=== PATIENT | female | born 1950 | race Asian ===

== ENCOUNTER 2018-07-05 10:31 | Inpatient (IN) | payer MEDICARE, OTHER, SELFPAY ==
[2018-06-30 08:22] VITALS: BMI 26.5
[2018-07-05] VITALS (17 sets, daily range): BP systolic 96–148; BP diastolic 57–90; PULSE 76–102; RESP 12–20; TEMP 36.1–36.8; O2SAT 93–100; BMI 25.4
--- NOTE | 2018-07-05 | DI.RAD.S_ITS ---
PROCEDURE: XR LUMBAR SPINE 2-3V INDICATIONS: L4-5 TLIF TECHNIQUE: 2 views of the lumbar spine were acquired. COMPARISON: [facility]ricks[facility], XR LUMBAR SPINE 2 OR 3 VIEWS, 06/27/2018, 10:14. FINDINGS: 2 intraoperative fluoroscopic views of the lower lumbar spine demonstrate postsurgical changes status post posterior fixation at L4-L5 with mild pedicle screws at these levels. Intervertebral spacer is also noted. IMPRESSION: 1. Intraoperative images demonstrate posterior fixation and fusion at L4-5. Dictated by: Tacos Main M.D. on 07/05/2018 at 16:02 Approved by: Tacos Main M.D. on 07/05/2018 at 16:03
[2018-07-05] MEDS: LACTATED RINGERS 1,000 ML 42 ML IV ×2 (11:13→14:29)
--- NOTE | 2018-07-05 11:59 | PM.PREOP ---
Pre-operative Note Interval Note History & Physical reviewed/Exam performed by Physician: Yes Changes to H&P: No
[2018-07-05] MEDS: SCOPOLAMINE 1 PATCH TOP (12:05)
[2018-07-05] MEDS: CEFAZOLIN 2 GM/100 ML FROZ.PIGGY IV (12:28)
--- NOTE | 2018-07-05 13:16 | SUR.OPER ---
Prone on spine table, head in foam head support, padded chest and pelvic supports, gel pad at knees, lower legs supported by pillows; nipples, genitalia and toes free of pressure, arms secured on foam padded arm boards at <90 degrees abduction. Tape over blanket at thigh secured to table.
[2018-07-05] MEDS: BUPIVACAINE LIPOSOME 266 MG/20 ML VIAL INJ (13:20)
[2018-07-05] MEDS: BUPIVACAINE 0.25% W/ EPI 30 ML VIAL INJ (13:20)
[2018-07-05] MEDS: ACETAMINOPHEN IV 1,000 MG/100 ML VIAL 400 MG IV (14:42)
--- NOTE | 2018-07-05 15:21 | PM.OP.1 ---
Operative Date/Time/Diagnoses Date of procedure: 07/05/18 Time of procedure: 12:21 Pre-op diagnosis: 1. L4-5 spondylolisthesis 2. L4-5 spinal stenosis Post-op diagnosis: same Procedure & Clinicians Procedure: 1. L4-5 Postero-lateral and posterior interbody fusion 2. L4-5 interbody cage placement. 3. L4-5 decompressive laminectomy with bilateral facetecomies 4. L4-5 Posterior non-segmental instrumentation 5. Alviso of bone marrow from iliac crest 6. Utilization of microsurgical technique and operating microscope Same procedure as scheduled: Yes Indications: Patient has been having chronic back pain and worsening lumbar radiculopathy. Patient failed multiple conservative management with worsening pain weakness and numbness in her lower extremity. Patient has been having difficulty performing activity of daily living. After discussing risks benefits of treatment options, patient elected proceed with surgery. Surgeon: Carol Albright Automatic Washer Mechanic: Selina Sloan Click Yes if Unassisted: No Anesthesia Type: General Operative Notes Closure Type: primary Specimen(s): none sent Prosthetic devices, grafts, tissues, transplants, or devices: Globus Revolve screws, Rise cage Estimated Blood Loss (mL): 50 Blood products transfused: none Procedure in detail: Patient was seen in the preoperative area. Risks and benefits of the surgery was discussed with the patient. Informed consent was obtained from the patient and placed in the chart. Surgical site was marked. Patient was taken to the operative room. General anesthesia was administered. Prophylactic antibiotic was given to the patient less than 30 min before the incision was made. Patient was placed into a prone position on the Roberto table. Patient's back was then prepped and draped in the sterile fashion. Time-out was performed at this time. Using AP and lateral C-arm imaging the interval between L4-5 was identified and marked on patient's back. A 2 inch incision 2 in from midline was made on the left side first. The fascia was incised in line with skin incision. Globus MARS retractors was placed inside the incision and docked onto the L4 lamina. Using microsurgical technique and operating microscope, a L4-5 laminectomy and L4-5 facetectomy was performed using a Kerrison rongeur. Patient was found have severe bilateral neuroforaminal stenosis, which was fully decompressed after decompression was completed. More than 75% of bilateral facets were removed during the process decompression which made the L4-5 level further unstable and require a fusion procedure at the same time. The disc space at L4-5 was identified. And a total diskectomy was performed at L4-5 level. The endplates were decorticated using a rasp and shaver. The total diskectomy and decortication was performed at L4-5 level in order to to accomplish a L4-5 fusion. The local bone from the laminectomy and facetectomy was saved for local bone grafting. After the total diskectomy and decortication was completed, Bio4 bone graft material was combined with local bone that was harvested earlier. At this time, a separate skin is incision was made over the iliac crest. A Jamshidi needle was inserted into the iliac crest through a separate skin incision. 5 cc of bone marrow aspiration was obtained through the separate skin incision using a Jamshidi needle from the iliac crest. The bone marrow aspiration was combined with local bone and the via cell bone grafting material. The bone grafting material was placed into the L4-5 interbody space along with a expandable cage. The cage was expanded to its maximum height using the torque limiting screwdriver. At this time a mirror image incision was made on the right side. The fascia was incised in line with the skin incision. Globus MARS retractor was inserted and docked onto the L4-5 posterolateral gutter. Using the power drill, posterior-lateral decortication was performed at L4-5 level until bleeding cortical bone was identified. The remaining bone grafting material was placed into the L4-5 posterior lateral gutter he order to accomplish posterolateral fusion at the L4-5 level. Using the double C-arm technique, pedicle screws were placed into the L4-5 pedicles bilaterally. This was done by placing the Jamshidi needle into the pedicles, then placing the guidewires over the Jamshidi needle, and finally placing the cannulated screws over the guidewires bilaterally. After the pedicle screws were placed, 2 titanium rods was locked into the heads of the pedicle screws using locking caps and torque limiting screwdriver. After all the hardware was placed, and confirmed with AP and lateral C-arm imaging, the wound was then irrigated with sterile normal saline and packed with Ray-Myrna gauze for 3 min to accomplish hemostasis. After the gauze was removed the deep fascia was closed with #1 Vicryl suture. The subcutaneous layer was closed with 2-0 Vicryl. The skin was closed with skin gavi. Patient tolerated the procedure well. There were no complications. Complications: none Condition: stable Disposition: PACU Plan for aftercare: Admit to inpatient hospital
--- NOTE | 2018-07-05 16:45 | SUR.PHASEI ---
Pt transferred to room 209 via bed with all belongings. Pt is awake and alert with no c/o pain. Last vital signs stable; see flowsheet documentation for details. Report given to SUSAN Medel prior to transfer. Lizy at bedside upon arrival to room 209; handoff report and assessment done. Lizy to assume care of pt at this time.
[2018-07-05] MEDS: SODIUM CHLORIDE 0.9% 1,000 ML 100 ML IV (16:52)
--- NOTE | 2018-07-05 19:01 | PC.NURSE ---
Pt doing well after spinal surgery - dressing to lumbar region CDI. Denies pain at this time and can move and feel her LEs. Alert and oriented. Eating and drinking well - no nausea. Spouse in room with pt and will stay overnight in room. O2 sats = 95% on RA.
[2018-07-05] MEDS: DOCUSATE 100 MG CAPSULE PO (21:18)
[2018-07-05] MEDS: CEFAZOLIN 1 GM/50 ML FROZ.PIGGY IV (21:18)
[2018-07-05] MEDS: ACETAMINOPHEN 325 MG TABLET 650 MG PO (21:22)
--- NOTE | 2018-07-05 22:41 | PC.NURSE ---
Pt denies pain. Has voided large volume of urine on two occasions. able to move self in bed without pain. Dressing to back CDI. Spouse in room.
[2018-07-06 03:18] VITALS: BP 124/59; PULSE 69; RESP 16; TEMP 36.7; O2SAT 96
[2018-07-06] MEDS: CEFAZOLIN 1 GM/50 ML FROZ.PIGGY IV (04:35)
[2018-07-06 07:50] VITALS: PULSE 63; RESP 16; O2SAT 94
[2018-07-06 08:00] VITALS: BP 124/55; PULSE 76; RESP 18; TEMP 36.8; O2SAT 95
[2018-07-06] MEDS: HYDROCODONE/ACET 5/325 TABLET 1 TAB PO (08:53)
--- NOTE | 2018-07-06 09:15 | PT.IIE ---
Current Diagnoses Spondylolisthesis, lumbar region (07/05/18) Spinal stenosis, lumbar region without neurogenic claudication (07/05/18) Other bursal cyst, other site (07/05/18) Surgery Performed Operation Date: 07/05/18 12:15 Actual Procedures p L5-S1 hemilaminectomy, L4-5 TLIF w/posterior instrumentation - Carol Albright MD Surgical History (Last Updated 06/30/18 @ 08:27 by Mouna Leung RN) Hx of arthroscopy of right knee (Acute ~11/2012) Hx of breast implants, bilateral (Acute) Medical History (Last Updated 06/30/18 @ 09:06 by Mouna Leung RN) Abnormal liver function tests (Acute) Breast cyst (Acute ~1998) Chronic low back pain (Acute) Impaired fasting glucose (Acute) Lumbar radiculopathy (Acute) Peripheral neuropathy (Acute) Physical Therapy Inpatient Evaluation/Re-Eval M1 PT/OT-IP Prior Functional Status Start: 07/06/18 12:46 Freq: NEEDED Status: Active Protocol: Document 07/06/18 09:15 AB (Rec: 07/06/18 12:56 AB [id number]) Medical Review Prior Functional Status Medical History Reviewed Yes Communication able to make needs known Mobility and Gait pt stated that she is independent with all mobilities and ambulation without AD Social History Household Members spouse Living Arrangements House Number of Floors (Floors) Two Floors Number of Stairs To Enter/Railing? 2 steps without rails to enter 14 steps with L rail ascending to main level of the house Home Environment High Toilet Walk in Shower Home Equipment Front Wheel Walker Shower Seat without Backrest Hand Held Shower Additional Social History Comment pt has a high bed; pt plans to sleep on a couch has a hurrycane M2 PT-IP Current Condition Start: 07/06/18 12:46 Freq: NEEDED Status: Active Protocol: Document 07/06/18 09:15 AB (Rec: 07/06/18 12:56 AB [id number]) Physical Therapy Current Condition Current Condition Evaluation Date 07/06/18 Treatment Diagnosis s/p L 4-5 fusion/ lami; difficulty in walking Onset Date 07/05/18 Precautions Lumbar Precautions Log Roll No Twisting Limit Bending Lifting Restriction of 10 lbs Gait Belt above Incisional Area M3 PT-IP Subjective Start: 07/06/18 12:46 Freq: NEEDED Status: Active Protocol: Document 07/06/18 09:15 AB (Rec: 07/06/18 12:56 AB [id number]) Subjective Physical Therapy Visit Type Type Initial Evaluation Visit Start Time 09:15 Visit Stop Time 09:57 Number of CHIEF ULTRASOUND TECHNOLOGIST Visits 42 Physical Therapy Visit Comments Patient Comments pt agreeable to do PT Therapy Pain Assessment Pain When Pain Assessed At Rest Pain Present Pain Present Pain Reported Location Lower Back Intensity 3 Scale Used Numeric (1 - 10) Pain Management Techniques Re-positioning Timing of Activity with Medications M4 PT-IP Mobility and Gait Start: 07/06/18 12:46 Freq: NEEDED Status: Active Protocol: Document 07/06/18 09:15 AB (Rec: 07/06/18 12:56 AB [id number]) PT-Bed Mobility Assessment Rolling Type of Rolling Log Rolling Level of Assist Standby Assistance Supine to Sit Supine to Sit Standby Assistance Sit to Supine Sit to Supine Standby Assistance Scooting Scooting to Edge of Bed Standby Assistance PT-Transfer Assessment Sit to and From Stand Sit to and from Stand Standby Assistance Contact Guard Assistance Use of Upper Extremities Equipment Transfer Assistive Device Gait Belt Front Wheeled Walker Orthotic/Prosthetic Devices or Brace: No Transfers Transfer Destination Chair Transfer Technique Stand Step Pivot Transfer Ability Level of Assist Standby Assistance Contact Guard Assistance Use of Upper Extremities Gait Assessment Gait Gait Assistance Required: Standby Assistance Contact Guard Assist Distance (Feet) 100 Able to Maintain Weight Bearing Status Yes During Gait Assistive Devices Assistive Device Gait Belt Front Wheeled Walker Gait Deviations General Gait Pattern Decreased Stride Length Decreased Feet Clearance Factors Limiting Gait Function Factors Limiting Gait Function Decreased Activity Tolerance Decreased Strength Limited Range of Motion Pain Poor Balance Poor Safety Awareness Stair Climbing Assessment Evaluation Level of Assist On Stairs Minimal Assistance 1 Person Assistance Devices Stair Climbing Assistive Devices Straight Cane Left Railing Technique/Endurance Stair Climbing Direction Ascend and Descend Stair Climbing Technique Step to Step Number of Steps Climbed 3 Query Text: Stair Climbing Set # Repetitions (reps) 2 Comments Stair Climbing Comments pt completed up/down 1 step x 2 sets using SPC on R and WORKERS COMPENSATION COORDINATOR on L requiring min A and cues. pt completed up/down steps with pt holding on to L rail with both hands min A and cues . spouse educated on how to assist pt and counter demonstrated and was able to safely assist pt. PT-Balance Assessment Sitting Balance and Reactions Static Sitting Balance Ability Good Dynamic Sitting Balance Ability Good Standing Balance and Reactions Static Standing Balance Ability Fair Dynamic Standing Balance Ability Fair Device Used FWW M5 PT-IP Objective Assessments Start: 07/06/18 12:46 Freq: NEEDED Status: Active Protocol: Document 07/06/18 09:15 AB (Rec: 07/06/18 12:56 AB [id number]) Orientation Orientation/Cognition Level of Alertness Alert Orientation Name Place Situation Language Function Ability No Deficits Noted Safety Awareness Understands Safety Issues Gross Range of Motion Lower Extremity ROM Assessment Within Functional Limits Strength Lower Extremity Strength Assessment Within Functional Limits Coordination Assessment Gross Coordination Gross Coordination WNL Sensation Assessment Sensation Gross Sensation WNL Muscle Tone Muscle Tone WNL Yes M6 PT-IP Treatment Start: 07/06/18 12:46 Freq: NEEDED Status: Active Protocol: Document 07/06/18 09:15 AB (Rec: 07/06/18 12:56 AB [id number]) Physical Therapy Treatment Education Education Provided Precautions Weight Bearing Status Post-Op Packet Safety M7 PT-IP Assessment and Plan Start: 07/06/18 12:46 Freq: NEEDED Status: Active Protocol: Document 07/06/18 09:15 AB (Rec: 07/06/18 12:56 AB [id number]) PT Summary Assessment and Plan Potential Rehabilitation Potential Good Status of Condition at Evaluation Stable Summary Impairments Pain ROM Strength Balance Coordination Bed Mobility Transfers Gait Activity Tolerance Assessment Summary pt requiring SBA to CGA with mobility. pt plans to go home with spouse to assist her. caregiver training conducted and spouse was able to assist pt. safely. pt may go home when medically stable. Goals Bed Mobility Goal Independent Transfer Goal Independent Front Wheeled Walker Gait Goal Independent Front Wheel Walker Gait Distance 200 Other Goals up/down 2 steps without rails SPC SBA up/down 14 steps with L rail ascending SBA Days to Meet Goals 5 Frequency of Treatment Frequency Of Treatment Twice a Day Treatment Plan Physical Therapy Treatment Plan Bed Mobility Training Transfer Training Gait Training Therapeutic Exercise Balance Retraining Post Op Education Discharge Planning Hot or Cold Pack Neuromuscular Re-ed Coordination Retraining Manual Therapy Recommendations To Nursing Amount of Assist Needed 1 Person Assist Discharge Recommendations PT Discharge Recommendations Home with Assistance
--- NOTE | 2018-07-06 09:38 | P.DS_ITS ---
History of Present Illness Date Patient Seen: 07/06/18 Time Patient Seen: 09:38 Chief complaint: [id number] Narrative: Patient has been having chronic back pain and worsening lumbar radiculopathy. Patient failed multiple conservative management with worsening pain weakness and numbness in her lower extremity. Patient has been having difficulty performing activity of daily living. After discussing risks benefits of treatment options, patient elected proceed with surgery. Discharge Providers Date of admission: 07/05/18 10:31 Discharge Date: 07/06/18 Primary care physician: Mary Noel DO Consults: 07/05/18 16:48 Consult to Occupational Therapy Evaluate & Treat Comment: Physician Instructions: Evaluate and treat Consult to Physical Therapy Evaluate & Treat Comment: Physician Instructions: Evaluate and Treat Discharge provider: Edwina Jacobs PA-C Summary Discharge Diagnosis: s/p TLIF Hospital Course: Wendi was admitted for TLIF with Dr. Albright and she consented to procedure. Hospital course was unremarkable. POD # 1 patient was doing well and ready to discharge home. She was eating and voiding without difficulty or assistance. She had worked with Physical therapy throughout her stay. She is aware of her precautions of no bending lifting or twisting. SCDs were used for DVT prophylaxis. Exam Vital Signs (past 8 hours): - 07/06/18 03:18 07/06/18 07:50 07/06/18 08:00 Temperature 98.1 F 98.2 F Pulse Rate 69 63 76 Respiratory Rate 16 16 18 Blood Pressure 124/59 L 124/55 L Pulse Oximetry 96 94 95 Fraction of Inspired Oxygen 21 Oxygen Delivery Method Room Air Oxygen Flow Rate 0 Narrative Exam Narrative: Patient lying in bed in no acute distress. She is alert oriented x3. Dressing on back at [facility]. Calves are soft, compressible, nontender bilaterally. Sensation intact to light touch throughout bilateral lower extremities. Pulses are symmetrical. She is able to actively dorsiflex and plantar flex. No complaints of pain this morning. She is doing well. Discharge Plan Discharge Plan Patient Disposition: Home Discharge Med Rec/Prescriptions Prescriptions: New hydrocodone-acetaminophen 5-325 mg Tablet 1 tab PO Q4HR PRN (Reason: Pain, Moderate (4-6)) Qty: 40 RF: 0 docusate sodium [DOK] 100 mg Capsule 100 mg PO BID Qty: 60 RF: 0 hydroxyzine pamoate 25 mg Capsule 25 mg PO Q6HR Qty: 30 RF: 0 Follow up/Referrals: Carol Albright MD [Physician] - Provider Discharge Instructions Activity: No excessive bending, lifting, or twisting Skin/Wound/Dressing Care Report to your healthcare provider any signs of infection, such as:: chills, fever and increased pain Dressing: Coversite dressing in place until appointment Visit Report/Discharge Packet Instructions: DI for Transforaminal Lumbar Interbody Fusion Discharge Data Primary Care Provider: Mary Noel Attending Provider: Carol Albright Admit Date/Time: 07/05/18 10:31 Quality VTE Deep Vein Thrombosis/Pulmonary Embolism Present on Admission: No
--- NOTE | 2018-07-06 10:19 | OT.IP.EVAL ---
Current Diagnoses Spondylolisthesis, lumbar region (07/05/18) Spinal stenosis, lumbar region without neurogenic claudication (07/05/18) Other bursal cyst, other site (07/05/18) Surgery Performed Operation Date: 07/05/18 12:15 Actual Procedures p L5-S1 hemilaminectomy, L4-5 TLIF w/posterior instrumentation - Carol Albright MD Past Medical History (Last Updated 06/30/18 @ 09:06 by Mouna Leung RN) Abnormal liver function tests (Acute) Breast cyst (Acute ~1998) Chronic low back pain (Acute) Impaired fasting glucose (Acute) Lumbar radiculopathy (Acute) Peripheral neuropathy (Acute) Surgical History (Last Updated 06/30/18 @ 08:27 by Mouna Leung RN) Hx of arthroscopy of right knee (Acute ~11/2012) Hx of breast implants, bilateral (Acute) Occupational Therapy Inpatient Evaluation/Re-Eval M1 PT/OT-IP Prior Functional Status Start: 07/06/18 12:46 Freq: NEEDED Status: Active Protocol: Document 07/06/18 10:19 [facility] (Rec: 07/06/18 15:14 [facility] [id number]) Medical Review Prior Functional Status Medical History Reviewed Yes Diet/Fluid Consistency Regular Communication WNL, Faroese is second language, first language is [facility], pt speaks Faroese very well Mobility and Gait Pt stated that she is independent with all mobility and ambulation without AD. Activities of Daily Living and IADL's Pt normally independent with all self care and normally does all the cooking, but recently has been limited by back pain. 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 Both drive. Prior Functional Level (Other details) Pt likes to garden. Supportive is retired and can provide 24 hr assist at d/c. Social History Household Members spouse Living Arrangements House Number of Floors (Floors) Two Floors Number of Stairs To Enter/Railing? 2 steps without rails to enter 14 steps with L rail ascending to main level of the house Home Environment High Toilet Walk in Shower Home Equipment Front Wheel Walker Shower Seat without Backrest Hand Held Shower Employment Status Retired Additional Social History Comment pt has a high bed; pt plans to sleep on a couch has a hurrycane M2 OT-IP Current Condition Start: 07/06/18 15:00 Freq: Status: Active Protocol: Document 07/06/18 10:19 [facility] (Rec: 07/06/18 15:14 [facility] [id number]) Occupational Therapy Current Condition Current Condition Evaluation Date 07/06/18 Treatment Diagnosis decreased self care, s/p L4-S1 TLIF, buddy lami Diagnosis Onset Date 07/05/18 Post Operative Precautions Lumbar Precautions Log Roll No Twisting Limit Bending Lifting Restriction of 10 lbs Gait Belt above Incisional Area M3 OT- IP Subjective and Pain Start: 07/06/18 15:00 Freq: Status: Active Protocol: Document 07/06/18 10:19 [facility] (Rec: 07/06/18 15:14 [facility] [id number]) OT- Subjective Occupational Therapy Visit Type Type Initial Evaluation Visit Start Time 09:58 Visit Stop Time 10:19 Total Visit Minutes 21 Notes Pt's here for education this session. Occupational Therapy Visit Comments Patient Comments I feel really good today. Patient/Caregiver Goals to go home, be able to garden, resume cooking OT Pain Assessment Pain When Pain Assessed After Treatment Pain Present Pain Present Pain Reported Location Lower Back Intensity 3 Scale Used Numeric (1 - 10) Description Aching Acute Management Techniques Distraction Timing of Activity with Medications M4 OT- IP ADL's Start: 07/06/18 15:00 Freq: Status: Active Protocol: Document 07/06/18 10:19 [facility] (Rec: 07/06/18 15:14 [facility] [id number]) OT [id number] General Evaluation Self-Feeding Ability Independent OT ADL-Grooming General Evaluation Grooming Ability Independent Areas Needing Assistance Face Washing Comments OT Grooming Comments provided education re: body mechanics OT ADL-Oral Care General Eval Oral Care Ability Independent Devices Oral Care Devices Toothbrush Comments Oral Care Comments provided education re: body mechanics OT ADL-Dressing General Eval Upper Body Dressing Ability Independent Lower Body Dressing Ability Moderate Assistance Areas Needing Assistance Underpants/Brief Pants/Shorts Socks Shoes Comments OT Dressing Comments Pt declines icu clerk or sock aid, pt/ prefer to have assist with lower body dressing PRN. Pt wearing slip on shoes. OT ADL-Toileting General Evaluation Toileting Ability Independent Comments OT Toileting Comments Provided education e: body mechanics, pt declines toilet paper aid. OT ADL-Bathing Devices Bathing Equipment Hand Held Shower Sprayer Shower Chair without Arms Comments OT Bathing Comments Pt declines to shower here. Provided education re: body mechanics. Pt has necessary bathroom safety equipment. M5 OT- IP IADL's Start: 07/06/18 15:00 Freq: Status: Active Protocol: Document 07/06/18 10:19 [facility] (Rec: 07/06/18 15:14 [facility] [id number]) OT-Instrumental Activities of Daily Living Deficits IADL Deficits Identified Deficits Home Safety Awareness Awareness of Need for Assistance at Home Good Awareness Ability to Problem Solve Emergency Able to Problem Solve Situations Medication Management Medication Management No Deficits Identified Money Management Money Management No Deficits Identified Meal Preparation Meal Preparation Caregiver Provides Assist Meal Preparation Comments to assist until pt able Bed Placement Coordinator Bed Placement Coordinator Caregiver Provides Assist Bed Placement Coordinator Comments to assist until pt able Driving Driving Caregiver Provides Assist Driving Comments to assist until pt able M6 OT- IP Functional Cognition Start: 07/06/18 15:00 Freq: Status: Active Protocol: Document 07/06/18 10:19 [facility] (Rec: 07/06/18 15:14 [facility] [id number]) Cognitive Factors Limiting Selfcare Function Cognitive Ability Level of Alertness Alert Patient Orientation Name Age Birthday Month Date Year Day of Week Place Situation Attention Span Ability Capable of Focused Attention Capable of Sustained Attention Ability to Follow Commands Able to Follow One Step Commands Memory Description No Deficits Noted Safety Awareness No Deficits Noted Problem Solving Ability No deficits Noted Cognitive Comments Cognitive Assessment Comments Pt verbalizes and demonstrates understanding of lumbar precautions and adapted ADL techniques with occasional verbal cues to avoid twisting. OT- Vision and Hearing OT- Hearing Assessment OT- Hearing Assessment WFL OT- Vision Assessment Visual Acuity WFL M7 OT- IP Mobility and Balance Start: 07/06/18 15:00 Freq: Status: Active Protocol: Document 07/06/18 10:19 [facility] (Rec: 07/06/18 15:14 [facility] [id number]) OT-Transfer Assessment Sit to and From Stand Sit to and from Stand Independent Transfers Transfer Ability Independent Technique Transfer Destination Chair Transfer Technique Stand Step Pivot Devices Transfer Assistive Devices Front Wheeled Walker OT- Gait Assessment Gait Gait Assistance Required: Independent Distance (Feet) 15 Assistive Devices Assistive Device Front Wheeled Walker OT- Balance Assessment Sitting Balance and Reactions Static Sitting Balance Ability Good Dynamic Sitting Balance Ability Good Standing Balance and Reactions Static Standing Balance Ability Good Dynamic Standing Balance Ability Good Comments Other Balance Tests/Deviations/Treatment using FWW : M8 OT- IP Objective Assessments Start: 07/06/18 15:00 Freq: Status: Active Protocol: Document 07/06/18 10:19 [facility] (Rec: 07/06/18 15:14 [facility] [id number]) OT Gross Range of Motion Upper Extremity Range of Motion Assessment Within Functional Limits OT Strength Upper Extremity Strength Assessment Within Functional Limits OT- Coordination Assessment Comments Coordination Comments BUE WFL OT-Muscle Tone Assessment Muscle Tone WNL Yes OT Sensation Assessment Comments Summary Comments Pt denies deficits Edema Edema Absent M9 OT- IP Assessment and Plan Start: 07/06/18 15:00 Freq: Status: Active Protocol: Document 07/06/18 10:19 [facility] (Rec: 07/06/18 15:14 [facility] [id number]) OT Summary Assessment and Plan Potential Rehabilitation Potential Excellent Analytic Complexity at Evaluation Low Summary Progress Towards Goals Safe For Discharge Assessment Summary Low complexity OT assessment and all OT education completed in one session with this 68 yr old pt s/p L4-S1 TLIF with buddy lami. Supportive here for education and can provide 24 hr assist to pt at home. Pt moving very well with minimal pain complaints and has been cleared by P.T. for d/c today. See OT details above. No further OT services needed. Frequency of Treatment Frequency Of Treatment Discharge Discharge Recommendations OT Discharge Recommendations Home with 24/ Assist Home Equipment Needs pt declines any adaptive equipt, to assist PRN
--- NOTE | 2018-07-06 10:31 | PC.NURSE ---
Day shift: Pt left unit with student RN in WC to private car driven by spouse. Paperwork signed and all questions answered. Pt has all personal belongings and MD scrips.
--- NOTE | 2018-07-06 14:56 | CM.DPC ---
Initial DCP Assessment Note: Pt is a 68 yo male, resident of [place], now POD#1 from spinal surgery w/ Dr Albright. PCP: Mary Noel Payer: Medicare/[employer] Reviewed chart, pt discussed in multidisciplinary rounds tis morning. Therapy has cleared pt for return home w/family to assist and pt has planned for home, DC order from [facility] has already been initiated this morning. No needs expected from DC planning team although will remain available in case this changes today. ALEJANDRO Jack
== END 2018-07-06 10:32 | disposition home or self-care (01) | DRG 455 ==
PROVIDERS: Admitting Provider Orthopaedic Surgery Orthopaedic Surgery of the Spine; PCP Family Medicine; Visit Provider Orthopaedic Surgery Orthopaedic Surgery of the Spine
PROC: 0SG00AJ Fusion of Lumbar Vertebral Joint with Interbody Fusion Device, Posterior Approach, Anterior Column, Open Approach (ICD-10-PCS; principal; 2018-07-05 12:15)
DX: M48.061 Spinal stenosis, lumbar region without neurogenic claudication (principal); M43.16 Spondylolisthesis, lumbar region; M71.38 Other bursal cyst, other site
CPT/HCPCS: 72100; 76000; 94762; 97161; 97165; 97530; C1776; C9290; J0131; J0330; J0690; J1100; J1170; J2250; J2405; J2704; J3010